=== PATIENT | male | born 2000 | race Caucasian/White ===

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

== ENCOUNTER 2021-07-21 12:37 | Emergency (ER) | payer OTHER, SELFPAY ==
[2021-07-21 12:46] VITALS: BP 138/75; PULSE 93; RESP 16; TEMP 36.7; O2SAT 100
--- NOTE | 2021-07-21 12:46 | ED.WOUNDLAC ---
HPI - Wound/Laceration General Chief Complaint: Wound/Laceration Stated Complaint: Left foot injury cut Time Seen by Provider: 07/21/21 12:46 Source: patient and RN notes reviewed Mode of arrival: ambulatory Limitations: no limitations History of Present Illness HPI narrative: Patient states that he hit his little toe on a shelf causing it to have a split in the webspace between his 4th and 5th toes. He did this yesterday at 11:00 a.m.. Now it is becoming more tender. Onset (ago): day(s) (1) Extremity Location: Left: foot (between 4th and 5th toes) Place: home Patient tetanus UTD: No Context: accidental Associated symptoms: pain Treatments prior to arrival: bandage Related Data Allergies Allergy/AdvReac Type Severity Reaction Status Date / Time No Known Allergies Allergy Verified 07/21/21 12:49 Review of Systems Review of Systems: All systems reviewed & are unremarkable except as noted in HPI and below Constitutional: Constitutional: Denies chills and Denies fever(s) PMFSH Past Medical History Medical History (Updated 07/21/21 @ 13:03 by Latrell Gross MD) No active medical problems Surgical History Surgical History (Updated 07/21/21 @ 12:56 by Latrell Gross MD) History of appendectomy Social History Social History (Updated 07/21/21 @ 12:58 by Latrell Gross MD) Smoking status: Never smoker Gender identity (if verbalized by the patient): Male Exam Const: General: healthy appearing and no acute distress Nutritional Appearance: well nourished Orientation/consciousness: patient oriented x3 Limitations: no limitations HENMT: Head: normal to inspection Ears: external ears normal Eyes: Conjunctivae: conjunctivae normal Pupils: Equal, round and reactive pupils present EOM: EOMs intact bilaterally Neck: Neck: normal visual inspection Resp: Effort & Inspection: normal respiratory effort Cardio: Rate: regular rate Rhythm: regular rhythm GI: GI Palp: Yes Soft to palpation and No Tenderness to palpation present (GI) Auscultation: normal bowel sounds Skin: General skin exam: normal color Rashes: no rashes Wounds: wounds noted ( wound between the 4th and 5th toes in the plantar web space) laceration left plantar 5th toe size (1.5 cm) Neuro: General: patient oriented x3, moves all extremities, no focal motor deficits and CN's II-XI intact bilaterally Speech: normal speech Gait exam (Neuro): Normal gait present ( limping gait) Extrem: General: normal to inspection and no clubbing, cyanosis or edema Psych: Mental Status: mental status grossly normal Affect: normal affect Attitude: cooperative Course Course Emergency Course: explained the patient that it is been too long since the laceration to close it at this point. I am going to update his tetanus, put him on some antibiotics for 10 days. He is advised to alisha tape 4th and 5th toes and I will use a hard-soled shoe so that it does not been constantly in open up the wound. Vital Signs Vital signs: Vital Signs Temperature 36.7 C 07/21/21 12:46 Pulse Rate 93 07/21/21 12:46 Respiratory Rate 16 07/21/21 12:46 Blood Pressure 138/75 07/21/21 12:46 Pulse Oximetry 100 07/21/21 12:46 Oxygen Delivery Room Air 07/21/21 12:46 Temperature 36.7 C 07/21/21 12:46 Pulse Rate 93 07/21/21 12:46 Respiratory Rate 16 07/21/21 12:46 Blood Pressure 138/75 07/21/21 12:46 Pulse Oximetry 100 07/21/21 12:46 Oxygen Delivery Room Air 07/21/21 12:46 Discharge Plan Discharge Clinical Impression: Laceration Patient Disposition: Home, Self-Care Condition: Stable Instructions: Laceration (ED) Additional Instructions: Wear the hard sole shoe when up and about. Keep the toes alisha-taped until the wound closes. Use only soap and water to keep it clean. Take all antibiotics until gone. Follow-up with your primary care physician if not closed in the next 2 weeks. Prescriptions: New amoxici
[2021-07-21] MEDS: TETANUS,DIPHTHERIA,AC PERTUSSIS ADULT 0.5 ML (ADACEL) IM (13:01)
--- NOTE | 2021-07-21 13:09 | PC.NURSE ---
WOUND WAS CLEANED, SOREN TAPED AND PT IN POST OP SHOE.
== END 2021-07-21 13:06 | disposition home or self-care (01) ==
PROVIDERS: Emergency Provider Emergency Medicine; PCP Physician Assistant
DX: S91.312A Laceration without foreign body, left foot, initial encounter (principal); W22.8XXA Striking against or struck by other objects, initial encounter
CPT/HCPCS: 90471; 90715; 99283

== ENCOUNTER 2024-05-23 07:30 | Outpatient (CLI) | payer OTHER, SELFPAY ==
--- NOTE | ~2024-05-23 | MR_ITS ---
MRI of the right knee Clinical history: Pain Technique: Coronal proton density and proton density-weighted images, sagittal proton-density and T2 fat-sat images, and axial proton-density fat-saturated images were acquired. Findings: Anterior and posterior cruciate ligaments are intact. Medial collateral ligament and the la teral collateral ligament complex are intact. Popliteus tendon is intact. Medial and lateral menisci are intact, without evidence of tear. Articular cartilage is well preserved throughout the knee. Bone marrow signals are unremarkable. Extensor mechanism is intact. No significant joint effusion or Pruett's cyst. Impression: No significant abnormality seen. Reviewed, dictated and finalized at location . Impression: No significant abnormality seen.
--- OUTSIDE RECORDS SUMMARY | 2024-05-23 07:34 | XMS_ITS | Continuity of Care Document ---
Author Organization [facility] Address [address] [place] [address] Phone Care Team Providers Care Mysql Database Developer Name Role Phone Brandon Vila MD Unavailable Unavailable Allergies, Adverse Reactions, Alerts Substance Reaction Status Criticality No Known Allergies Active No Inform ation Medications Medication Instructions Dosage Effective Dates (start - stop) Status Comments amoxicillin 500 mg capsule take 1 capsule by oral route every 12 hours 500 MG - Active Procedures Procedure Date OFFICE/OUTPATIENT VISIT, [facility] PREV VISIT, NEW, AGE 12-17 Advance Directives Directive Yes / No Effective Date File Name No Information Encounters Encounter Description Practice Location Reason(s) For Visit Diagnoses Date Provider Providers Copied on Encounter [facility], [address] [place] [address], [facility], tel:[phone] [facility] No Information 7 Julito Taylor. [address], [place], [facility], . tel: [phone] OFFICE/OUTPAT IENT VISIT, [facility], [address] [place] [address], [facility], tel: [phone] Irene SORE THROAT.. (chief complaint)F EVER.. (chief complaint) Pharyngitis 7 Antwon Bravo. [address], [place], [facility], . tel: [phone] [facility], [address] [place] [address], [facility], tel: [phone] Irene Factor V Leiden mutation 6 Sunny Cheema. [address] [place], [address], [place]. tel: [phone] PREV VISIT, NEW, AGE 12-17 [facility], [address] [place] [address], [place], [address], [place] [phone] [facility] PHY (chief complaint) Encounter for exam for admission to educational institution 6 Sunny Cheema. [address] [place], [address], [place]. tel: [phone] Family History Family Member Type Diagnosis Age At Onset No Information Payers Payer name Insurance type Covered constitution party ID Authoriza ticiara(s) No Information Social History Type Description Quantity Date Captured Comments Sex Male Smoking Status No Information Chief Complaint And Reason For Visit No Information Reason For Referral Reason For Referral No Information Plan Of Treatment Date Type Action Status Referral Ordered: Referrals: Hematology. Location: [place].. Evaluate and treat Appointment date/timeframe: 12/21/2015 ordered History Of Present Illness Encounter Date Complaint History Of Prese nt Illness FEVER.. SORE THROAT.. Patient complain s of a very bad sore throat for past 3 days. He states he has had a fever 102. Patient conmplains of aching and just feeling tired [facility] SCHOOL PHY (comments) Pt present s to the clinic for a school physicial. Mother and pt deny any complaints or concerns at this time. Mother denies any past medical history for the patient. Mother denies any sudden cardiac before the age of 50. Patient denies any interest in sports. Functional Status Date Functional Assessmen t No Information Instructions Date Instruction Additional Infor mation Observe for worsening s/s Relate d to Pharyngitis Discard toothbrush in 2 days Rel ated to Pharyngitis Tylenol/ Motrin as n eeded for fever/discomfort Related to Pharyngitis Medications as discussed Related to Pharyngitis Recommend gargling Related to Ph aryngitis Pt cleared for school for one [employer]phanie esquivel. Related to Encounter for exam for admission to educational institution Assessments Type Assessment Date No Information Patient Care Teams Name Effective Dates (start - stop) Status Members No Information
--- OUTSIDE RECORDS SUMMARY | 2024-05-23 07:34 | XMS_ITS | Clinical Summary ---
Author Organization [facility] Address [address] [address] [place] [address] Phone Care Team Providers Care Humanities Department Chair Name Role Phone Unavailable Primary Care Provider Unavailabl e Social History Tobacco Use Types Packs/Day Years Used Date Smoking Tobacco: Never Assessed Sex and Gender Information Value Date Recorded Sex Assigned at Not on file Legal Sex Male 1:59 PM CDT Gender Identity Not on file Sexual Orientation Not on file Plan of Treatment Upcoming Encounters Date Type Department Care Team (Late st Contact Info) Description 05/31/2024 2:00 PM CDT Office Visit [facility] [employer] [place] [address] [place] [phone] Health Maintenance Due Date Last Done Comments HPV VACCINES (1 - Male 3-dose series) 10/16/2015 DTAP/TDAP/TD VACCINES (1 - Tdap) 10/16/2019 HEPATITIS B VACCINES (1 of 3 - 19+ 3-dose series) 03/2019 INFLUENZA VACCINE (#1) 2023
== END 2024-05-23 07:31 | disposition home or self-care (01) ==
LOC: CHSIMG 07:31
PROVIDERS: PCP Family Medicine; Visit Provider Family Medicine
DX: S83.209A Unspecified tear of unspecified meniscus, current injury, unspecified knee, initial encounter (principal)
CPT/HCPCS: 73721